=== PATIENT | male | born 1975 | race Caucasian/White ===

== ENCOUNTER 2017-03-04 18:17 | Emergency (ER) | payer BC ==
[2017-03-04 18:26] VITALS: BP 149/106
[2017-03-04] MEDS ORDERED: Lidocaine/Epineph/Tetraca SOL* (LET solution) 4 ML BTL TOPICAL ONE (18:34)
--- NOTE | 2017-03-04 18:39 | UC ---
Laceration HPI - HPI Summary HPI Summary: 41 y/o male presents to the ER c/o head laceration on top of his head with a roll bar of a dozer around 30 min ago. Pt reports he had a Tetanus Vaccine 2 year ago. Pt states pain is 7/10 bleeding stopped with compression. Pt denies pain, ARMANDO, N/V/D, dizziness, SOB, chest pain. - History Of Current Complaint Chief Complaint: UCLaceration Stated Complaint: HEAD LACERATION Time Seen by Provider: 03/04/17 18:31 Hx Obtained From: Patient Laceration Location: Head - top of scalp Mechanism Of Injury: Sharp Trauma Onset/Duration: Sudden Onset, Lasting Minutes, Still Present Severity: Moderate Pain Intensity: 7 Pain Scale Used: 0-10 Numeric Aggravating Factors: Other: - touch - Allergies/Home Medications Allergies/Adverse Reactions: Allergies Allergy/AdvReac Type Severity Reaction Status Date / Time No Known Allergies Allergy Verified 03/04/17 18:26 PMH/Surg Hx/FS Hx/Imm Hx Previously Healthy: Yes Other History Of: Negative For: HIV, Hepatitis B, Hepatitis C, Anticoagulant Therapy - Surgical History Surgical History: Yes Surgery Procedure, Year, and Place: appy - Family History Known Family History: Positive: Hypertension - Social History Occupation: Employed Full-time Lives: With Family Alcohol Use: Occasionally Alcohol Amount: once a week Substance Use Type: None Smoking Status (MU): Heavy Every Day Tobacco Smoker Type: Cigarettes Amount Used/How Often: 1/2 ppd Length of Time of Smoking/Using Tobacco: 25 yrs Have You Smoked in the Last Year: Yes Household Exposure Type: Cigarettes - Immunization History Most Recent Influenza Vaccination: none Review of Systems Constitutional: Negative Skin: Other - Laceration on top of scalp s/p injury Eyes: Negative ENT: Negative Respiratory: Negative Cardiovascular: Negative Gastrointestinal: Negative Genitourinary: Negative Motor: Negative Neurovascular: Negative Musculoskeletal: Negative Neurological: Negative Psychological: Negative All Other Systems Reviewed And Are Negative: Yes Physical Exam Triage Information Reviewed: Yes Appearance: Well-Appearing, No Pain Distress, Well-Nourished Vital Signs: Initial Vital Signs Temp 97.6 F 03/04/17 18:23 Pulse 84 03/04/17 18:23 Resp 16 03/04/17 18:23 BP 149/106 03/04/17 18:23 Vital Signs Reviewed: Yes Eye Exam: Normal Eyes: Positive: Conjunctiva Clear - PERRLA, EOMI, fundi grossy normal ENT Exam: Normal ENT: Positive: Normal ENT inspection, Hearing grossly normal, Pharynx normal, TMs normal Dental Exam: Normal Neck exam: Normal Neck: Positive: Supple, Nontender, No Lymphadenopathy Respiratory Exam: Normal Respiratory: Positive: Chest non-tender, Lungs clear, Normal breath sounds Cardiovascular Exam: Normal Cardiovascular: Positive: RRR, No Murmur, Pulses Normal Abdominal Exam: Normal Abdomen Description: Positive: Nontender, No Organomegaly, Soft. Negative: CVA Tenderness (R), CVA Tenderness (L) Bowel Sounds: Positive: Present Musculoskeletal Exam: Normal Musculoskeletal: Positive: Strength Intact, ROM Intact, No Edema Neurological Exam: Normal Psychological Exam: Normal Skin: Positive: significant lesion(s) - top scalp linear superficial laceration about 5cm in size. mild tender to palaption, bleeding stopped. no foreign body observed, no erythema or swelling observed. Laceration Repair - Laceration Repair 1 Description: Linear Laceration Size After Repair: Length (cm) - 5cm Modified For Repair: No Type Injection: Local - LET applied 8ml Cleansing Completed Via Routine Prep: Yes Irrigation With Pressure Irrigation Device: Yes Closure Material: Brinson - 10 dena Closure Method: Single Layer Suture Of: Skin Suture Type: Other - dena Laceration Course/Dx - Course/Dx Course Of Treatment: 41 y/o male presents to the ER c/o head laceration on top of his head with a roll bar of a dozer around 30 min ago. Pt reports he had a Tetanus Vaccine 2 year ago. Pt denies pain, ARMANDO, N/V/D, dizziness, SOB, chest pain. HX obtained. PE bnormal findings: Skin: Positive: significant lesion(s) - top scalp linear superficial laceration about 5cm in size. mild tender to palaption, bleeding stopped. no foreign body observed, no erythema or swelling observed. LACERATION PROCEDURE NOTE: Copious irrigation was done with saline by the nurse. Bleeding stopped, wound explored. There was no FB or deep structure injury noted. Time out performed and all involved parties agreed to the PT, procedure and laterality. The patient was prepped and draped in usual sterile fashion. Local anesthesia was obtained with 8ml of LET with good anesthesia. There were 10 dena placed. The length of the wound after closure was 5cm. No debridement done. Wound was covered with sterile nonadherent dressing by the Nurse. The Pt tolerated the procedure well without adverse effects. Pt gienc Ibuprofen 800mg PO for pain and RX Ibuprofe PO. Pt advised if fever, redness develops around wound to returnt to the urgent care or f/u with PCP. Advised to f/u staple removal in 7-14 days. Pt's BP is elevated today, advised to decrease salt in his diet, monitor BP at home and if it continues to be elevated to f/u with PCP for further management. Pt uderstood and agreed and left the clinic ambulating, A&OX3. - Differential Dx - Laceration/Wound Differental Diagnoses: Abrasion, Foreign Body, Laceration, Puncture Wound, Tendon Laceration Provider Diagnoses: 1- Scalp Laceration. 2- Elevated Blood pressure w/o HX of HTN. Discharge - Discharge Plan Condition: Stable Disposition: HOME Prescriptions: Ibuprofen TAB* [Motrin TAB* 800 MG] 800 mg PO Q6H #20 tab Patient Education Materials: Laceration (ED), Staple Care (ED), Low Sodium Diet (ED) Referrals: SHARON DuranGraciela [Primary Care Provider] - If Needed Additional Instructions: 1-Please take ibuprofen PO q6-8hrs prn for pain ans swelling. 2- After 24 to 48 hours, wounds closed with dena if your develop fever, redness around wound please return to the urgent care or your PCP for further evaluation and treatment. 3- Please f/u staple removal in 7 to 14 4-Your BP today is elevated, please decrease salt in your diet, monitor your BP , if it continues to be elevated please f/y with your PCP for further management.
[2017-03-04] MEDS ORDERED: Ibuprofen TAB* 400 MG PO ONE (19:13)
== END 2017-03-04 19:26 | disposition home or self-care (01) ==
LOC: UCCORT 18:17
DX: S01.01XA Laceration without foreign body of scalp, initial encounter (principal); W22.8XXA Striking against or struck by other objects, initial encounter; R03.0 Elevated blood-pressure reading, without diagnosis of hypertension; F17.210 Nicotine dependence, cigarettes, uncomplicated
CPT/HCPCS: 12002; 99212; A9270-GY; G0463

== ENCOUNTER 2017-03-15 09:40 | Emergency (ER) | payer BC ==
[2017-03-15 10:04] VITALS: BP 128/88
--- NOTE | 2017-03-15 10:39 | ED ---
Skin Complaint - HPI Summary HPI Summary: 41 yr old male with scalp laceration on 03 of march, and had dena put in ; he presents here for removal of the dena. He feels fine and no other complains. - History of Current Complaint Chief Complaint: UCSkin Time Seen by Provider: 03/15/17 10:05 Stated Complaint: STAPLE REMOVAL - Allergy/Home Medications Allergies/Adverse Reactions: Allergies Allergy/AdvReac Type Severity Reaction Status Date / Time No Known Allergies Allergy Verified 03/15/17 10:04 PMH/Surg Hx/FS Hx/Imm Hx Endocrine/Hematology History: Denies: Hx Anticoagulant Therapy, Hx Diabetes, Hx Thyroid Disease Cardiovascular History: Denies: Hx Congestive Heart Failure, Hx Deep Vein Thrombosis, Hx Hypertension , Hx Myocardial Infarction, Hx Pacemaker/ICD Respiratory History: Denies: Hx Asthma, Hx Chronic Obstructive Pulmonary Disease (COPD), Hx Lung Cancer, Hx Pneumonia, Hx Pulmonary Embolism GI History: Denies: Hx Gall Bladder Disease, Hx Gastrointestinal Bleed, Hx Ulcer, Hx Urosepsis History: Denies: Hx Kidney Stones, Hx Renal Disease Neurological History: Denies: Hx Dementia, Hx Migraine, Hx Seizures, Hx Transient Ischemic Attacks (TIA) Psychiatric History: Denies: Hx Anxiety, Hx Depression, Hx Schizophrenia, Hx Bipolar Disorder - Surgical History Surgery Procedure, Year, and Place: appy - Immunization History Immunizations Up to Date: Yes Infectious Disease History: No Infectious Disease History: Denies: Traveled Outside the [place] in Last 30 Days - Family History Known Family History: Positive: Hypertension - Social History Alcohol Use: Occasionally Alcohol Amount: once a week Substance Use Type: Reports: None Smoking Status (MU): Heavy Every Day Tobacco Smoker Type: Cigarettes Amount Used/How Often: 1/2 ppd Length of Time of Smoking/Using Tobacco: 25 yrs Have You Smoked in the Last Year: Yes Review of Systems Positive: Other - staple removal from scalp All Other Systems Reviewed And Are Negative: Yes Physical Exam Triage Information Reviewed: Yes Vital Signs On Initial Exam: Initial Vitals Temp Pulse Resp BP Pulse Ox 98.2 F 84 14 128/88 98 03/15/17 10:00 03/15/17 10:00 03/15/17 10:00 03/15/17 10:00 03/15/17 10:00 Vital Signs Reviewed: Yes Appearance: Positive: Well-Appearing Skin: Positive: Other - scalp laceration healed well, and dena are present Eyes: Positive: EOMI Respiratory/Lung Sounds: Positive: Other - normal effort Musculoskeletal: Positive: Normal, Strength/ROM Intact Neurological: Positive: Sensory/Motor Intact, Alert, Oriented to Person Place, Time, CN Intact II-III Psychiatric: Positive: Normal - Perla Coma Scale Best Eye Response: 4 - Spontaneous Best Motor Response: 6 - Obeys Commands Best Verbal Response: 5 - Oriented Diagnostics - Vital Signs Vital Signs Temp Pulse Resp BP Pulse Ox 03/15/17 10:00 98.2 F 84 14 128/88 98 - Laboratory Lab Statement: Any lab studies that have been ordered have been reviewed, and results considered in the medical decision making process. Course/Dx - Course Course Of Treatment: dena removed, and dc to home - Diagnoses Provider Diagnoses: Encounter for removal of dena Discharge - Discharge Plan Condition: Good Disposition: HOME Patient Education Materials: Staple Care (ED) Referrals: SHARON Tse [Medical Doctor] -
== END 2017-03-15 10:39 | disposition home or self-care (01) ==
LOC: UCCORT 09:40
DX: Z48.02 Encounter for removal of sutures (principal); Z48.817 Encounter for surgical aftercare following surgery on the skin and subcutaneous tissue
CPT/HCPCS: 99211; G0463

== ENCOUNTER 2018-02-26 18:18 | Emergency (ER) | payer BC, OTHER ==
--- NOTE | 2018-02-27 17:12 | UC ---
Discharge - Sign-Out/Discharge Documenting (check all that apply): Post-Discharge Follow Up All imaging exams completed and their final reports reviewed: No Studies - Discharge Plan Condition: Stable Disposition: LEFT WITHOUT BEING SEEN Referrals: No Primary Care Phys,NOPCP [Primary Care Provider] - - Billing Disposition and Condition Condition: STABLE Disposition: Left Without Being Seen
== END 2018-02-26 18:43 | disposition left against medical advice (07) ==
LOC: UCCORT 18:18
DX: R10.9 Unspecified abdominal pain (principal); Z53.21 Procedure and treatment not carried out due to patient leaving prior to being seen by health care provider

== ENCOUNTER 2018-02-26 19:15 | Emergency (ER) | payer SELFPAY ==
[2018-02-26] MEDS ORDERED: NS 0.9% 1000 ML* 1,000 ML IV ONE (19:56)
[2018-02-26] MEDS ORDERED: Ketorolac INJ* 30 MG/ML 1 ML VIAL IV PUSH ONE (19:56)
--- NOTE | 2018-02-26 20:03 | ED ---
Abdominal Pain/Male - HPI Summary HPI Summary: A 42 y/o male presents to the ED c/o abdominal and ankle pain (on side) s/p fall reaching 9/10 in severity. In the ED room, the patient has a pulse of 83 BPM and O2 saturation of 96%. As per triage, "Pt c/o right ankle and abdominal pain. States he was at work walking on a pipe when he slipped and rolled his ankle and landed on his abdomen". According to the patient, he has been experiencing right ankle pain and diffuse abdominal pain since falling off a convert water pipe (pipe for water drainage) about approximately 36 inches high. He noted that he was walking on top of the pipe as he was at work and accidentally slipped and fell off the pipe around 1330 - 1400. He ended up rolling his ankle and landing on his abdomen. He didn't come into the hospital till later this evening as he wanted to complete his work shift. - History of Current Complaint Chief Complaint: EDAbdPain Stated Complaint: ABD PAIN/ANKLE PAIN Time Seen by Provider: 02/26/18 19:48 Hx Obtained From: Patient Onset/Duration: Sudden Onset, Lasting Hours, Still Present Timing: Constant Severity Initially: Severe Severity Currently: Severe Pain Intensity: 9 Pain Scale Used: 0-10 Numeric Location: Diffuse Radiates: No Aggravating Factor(s): Nothing Alleviating Factor(s): Nothing Associated Signs And Symptoms: Positive: Other - POSITIVE: Right ankle pain - Allergies/Home Medications Allergies/Adverse Reactions: Allergies Allergy/AdvReac Type Severity Reaction Status Date / Time No Known Allergies Allergy Verified 02/26/18 19:28 Home Medications: Home Medications Ibuprofen TAB* [Motrin TAB* 800 MG] 800 mg PO Q6H PRN 02/26/18 [History Confirmed 02/26/18] PMH/Surg Hx/FS Hx/Imm Hx Endocrine/Hematology History: Denies: Hx Anticoagulant Therapy, Hx Diabetes, Hx Thyroid Disease Cardiovascular History: Denies: Hx Congestive Heart Failure, Hx Deep Vein Thrombosis, Hx Hypertension , Hx Myocardial Infarction, Hx Pacemaker/ICD Respiratory History: Denies: Hx Asthma, Hx Chronic Obstructive Pulmonary Disease (COPD), Hx Lung Cancer, Hx Pneumonia, Hx Pulmonary Embolism GI History: Denies: Hx Gall Bladder Disease, Hx Gastrointestinal Bleed, Hx Ulcer, Hx Urosepsis History: Denies: Hx Kidney Stones, Hx Renal Disease Neurological History: Denies: Hx Dementia, Hx Migraine, Hx Seizures, Hx Transient Ischemic Attacks (TIA) Psychiatric History: Denies: Hx Anxiety, Hx Depression, Hx Schizophrenia, Hx Bipolar Disorder - Surgical History Surgery Procedure, Year, and Place: Appendectomy. Infectious Disease History: No Infectious Disease History: Denies: Traveled Outside the [place] in Last 30 Days - Family History Known Family History: Positive: Hypertension - Social History Alcohol Use: Occasionally Alcohol Amount: once a week Substance Use Type: Reports: None Smoking Status (MU): Heavy Every Day Tobacco Smoker Type: Cigarettes Amount Used/How Often: 1/2 ppd Length of Time of Smoking/Using Tobacco: 25 yrs Have You Smoked in the Last Year: Yes Review of Systems Negative: Fever Positive: Abdominal Pain Positive: Other - POSITIVE: Ankle pain All Other Systems Reviewed And Are Negative: Yes Physical Exam - Summary Physical Exam Summary: VITAL SIGNS: Reviewed. GENERAL: Patient is a well-developed and nourished male who is lying comfortable in the stretcher. Patient is not in any acute respiratory distress. HEAD AND FACE: No signs of trauma. No ecchymosis, hematomas or skull depressions. No sinus tenderness. EYES: PERRLA, EOMI x 2, No injected conjunctiva, no nystagmus. EARS: Hearing grossly intact. Ear canals and tympanic membranes are within normal limits. MOUTH: Oropharynx within normal limits. NECK: Supple, trachea is midline, no adenopathy, no JVD, no carotid bruit, no c- spine tenderness, neck with full ROM. CHEST: Symmetric, no tenderness at palpation LUNGS: Clear to auscultation bilaterally. No wheezing or crackles. CVS: Regular rate and rhythm, S1 and S2 present, no murmurs or gallops appreciated. ABDOMEN: Soft, non-tender. No signs of distention. No rebound no guarding. Bowel sounds are normal. Small umbilical hernia. EXTREMITIES: FROM in all major joints, no cyanosis or clubbing. Mild swelling of the right lateral malleolus ankle NEURO: Alert and oriented x 3. No acute neurological deficits. Speech is normal and follows commands. SKIN: Dry and warm Triage Information Reviewed: Yes Vital Signs On Initial Exam: Initial Vitals Temp Pulse Resp BP Pulse Ox 97.5 F 81 16 138/99 97 02/26/18 19:25 02/26/18 19:25 02/26/18 19:25 02/26/18 19:25 02/26/18 19:25 Vital Signs Reviewed: Yes Diagnostics - Vital Signs Vital Signs Temp Pulse Resp BP Pulse Ox 02/26/18 19:25 97.5 F 81 16 138/99 97 - Laboratory Result Diagrams: 02/26/18 20:06 02/26/18 20:06 Lab Statement: Any lab studies that have been ordered have been reviewed, and results considered in the medical decision making process. - Radiology ANKLE XR Radiology Interpretation Completed By: ED Physician - No fracture. Pending official report. - CT CT A/P CT Interpretation Completed By: Radiologist - 1. No acute intra-abdominal findings. ED physician reviewed this radiology report. Re-Evaluation - Re-Evaluation First Eval Re-Evaluation Time: 22:55 Change: Improved Comment: Patient is feeling much better. Abdominal Pain Fem Course/Dx - Course Course Of Treatment: A 42 y/o male presents to the ED c/o abdominal and ankle pain (on side) s/p fall reaching 9/10 in severity. In the ED room, the patient has a pulse of 83 BPM and O2 saturation of 96%. A CT A/P revealed 1. No acute intra-abdominal findings. A Ankle XR revealed no fracture. Urine and blood work were also done. In the ED course, the patient recieved Omnipaque, Toradol and IV fluids. During reevaluation, the patient was feling much better. Patient will be discharged with a diagnosis of ankle strain. Patient will be sent home with Ibuprofen. Patient is to follow up with PCP in 1-2 days. Patient is agreeable with this plan. - Diagnoses Provider Diagnoses: Ankle strain Discharge - Sign-Out/Discharge Documenting (check all that apply): Patient Departure - DISCHARGE - Discharge Plan Condition: Stable Disposition: HOME Prescriptions: Ibuprofen TAB* [Motrin TAB* 800 MG] 800 mg PO Q6H PRN #30 tab PRN Reason: Pain Patient Education Materials: Ankle Strain (ED) Referrals: [facility] [Outside] - 2 Days Additional Instructions: FOLLOW UP WITH PRIMARY CARE PHYSICIAN OR [facility] IN 1-2 DAYS. TAKE MEDICATION PRESCRIBED. RETURN TO ED FOR ANY NEW OR WORSENING SYMPTOMS. - Attestation Statements Document Initiated by Scribe: Yes Documenting Scribe: Ashu Gilbert Provider For Whom Scribe is Documenting (Include Credential): Naa Urena Scriblj Attestation: IAshu, scribed for Naa Urena on 02/26/18 at 2257.
[2018-02-26 20:27] LABS: ABS Basophils 0 10^3/ul (0-0.2); ABS Eosinophils 0.3 10^3/ul (0-0.6); ABS Lymphocytes 3.2 10^3/ul (1.0-4.8); ABS Monocytes 0.6 10^3/ul (0-0.8); ABS Neutrophils 3.8 10^3/ul (1.5-7.7); ABS Nucleated RBC 0 10^3/ul; Eosinophil % 4.4 % (0-6); Hematocrit 43 % (42-52); Hemoglobin 14.8 g/dl (14.0-18.0); Lymphocyte % 39.6 % (25-47); Mean Corpuscular HGB Conc 34 g/dl (31-36); Mean Corpuscular Hemoglobin 30 pg (27-31); Mean Corpuscular Volume 88 fL (80-94); Mean Platelet Volume 8.1 um3 (7.4-10.4); Nucleated Red Blood Cells % 0.2; Platelet Count 225 10^3/ul (150-450); Red Blood Count 4.94 10^6/ul (4.00-5.40); Red Cell Distribution Width 14 % (10.5-15)
[2018-02-26 20:35] LABS: INR 0.89 (0.77-1.02)
[2018-02-26 20:41] LABS: EGFR Non-African American 99.3 (>60)
[2018-02-26] MEDS ORDERED: Iohexol 300* (CONTRAST) 10 ML SDV IV ONE ×2 (21:14→21:30)
--- NOTE | 2018-02-26 22:30 | RAD ---
EXAM: CT Abdomen and Pelvis With Intravenous Contrast CLINICAL HISTORY: 42 years old, male; Pain and injury or trauma; Fall; Work related; Initial encounter; Blunt; Epigastric; Abdominal pain; Injury details: Pt was at work and slipped and fell on a pipe; Additional info: Abd pain/trauma TECHNIQUE: Axial computed tomography images of the abdomen and pelvis with intravenous contrast. All CT scans at this facility use at least one of these dose optimization techniques: automated exposure control; mA and/or kV adjustment per patient size (includes targeted exams where dose is matched to clinical indication); or iterative reconstruction. Coronal and sagittal reformatted images were created and reviewed. CONTRAST: 98 mL of OMNIPAQUE 300 administered intravenously. COMPARISON: No relevant prior studies available. FINDINGS: Lung bases: Unremarkable. No mass. No consolidation. ABDOMEN: Liver: Unremarkable. No mass. Gallbladder and bile ducts: Unremarkable. No calcified stones. No ductal dilation. Pancreas: Unremarkable. No mass. No ductal dilation. Spleen: Unremarkable. No splenomegaly. Adrenals: Unremarkable. No mass. Kidneys and ureters: Unremarkable. No solid mass. No hydronephrosis. Stomach and bowel: Colonic diverticula without CT findings of diverticulitis. No obstruction. PELVIS: Appendix: Surgical absence of the appendix. Bladder: Unremarkable. No mass. Reproductive: Unremarkable as visualized. ABDOMEN and PELVIS: Intraperitoneal space: Surgical clips in the right lower quadrant of the abdomen. No free air. No significant fluid collection. Bones/joints: Moderate disc space narrowing at the L5-S1 level. No acute fracture. No dislocation. Soft tissues: Small fat-containing umbilical hernia. Vasculature: Unremarkable. No abdominal aortic aneurysm. Lymph nodes: Unremarkable. No enlarged lymph nodes. IMPRESSION: 1. No acute intra-abdominal findings.
[2018-02-26 22:50] LABS: Urine Appearance Clear; Urine Blood 2+ (Negative); Urine Color Yellow; Urine Ketones Negative (Negative); Urine Protein Negative (Negative); Urine Red Blood Cell Absent (Absent); Urine Specific Gravity > 1.060 (1.010-1.030); Urine Urobilinogen Negative (Negative); Urine White Blood Cell Absent (Absent)
[2018-02-26 23:07] VITALS: BP 145/98
--- NOTE | 2018-02-27 08:11 | RAD ---
INDICATION: Right ankle pain COMPARISON: None TECHNIQUE: AP, lateral, and oblique views were obtained. FINDINGS: The bony structures, joint spaces, and soft tissues are normal for age. IMPRESSION: NEGATIVE EXAMINATION. R0
== END 2018-02-26 23:07 | disposition home or self-care (01) ==
LOC: ED 19:15
DX: S96.911A Strain of unspecified muscle and tendon at ankle and foot level, right foot, initial encounter (principal); R10.9 Unspecified abdominal pain; W19.XXXA Unspecified fall, initial encounter; Y92.9 Unspecified place or not applicable; F17.210 Nicotine dependence, cigarettes, uncomplicated
CPT/HCPCS: 36415; 74177; 80053; 81003; 81015; 82150; 83605; 83690; 83735; 85025; 85610; 85730; 96361; 96374; 99283; J1885; Q9967

== ENCOUNTER 2018-03-01 14:57 | Emergency (ER) | payer SELFPAY ==
[2018-03-01 15:10] VITALS: BP 147/100
--- NOTE | 2018-03-01 15:28 | UC ---
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 - History of Current Complaint Chief Complaint: UCAbdominalPain Stated Complaint: ABDOMINAL PAIN Time Seen by Provider: 03/01/18 15:14 Hx Obtained From: Patient Onset/Duration: Sudden Onset, Lasting Days - 3, Still Present Timing: Constant Pain Intensity: 6 Pain Scale Used: 0-10 Numeric Location: Other - umbillical Radiates: No Character: Aching Aggravating Factor(s): Movement - lifting Alleviating Factor(s): Nothing Associated Signs And Symptoms: Positive: Negative - Allergies/Home Medications Allergies/Adverse Reactions: Allergies Allergy/AdvReac Type Severity Reaction Status Date / Time No Known Allergies Allergy Verified 03/01/18 15:10 PMH/Surg Hx/FS Hx/Imm Hx Previously Healthy: Yes Other History Of: Negative For: HIV, Hepatitis B, Hepatitis C, Anticoagulant Therapy - Surgical History Surgical History: Yes Surgery Procedure, Year, and Place: Appendectomy. - Family History Known Family History: Positive: Hypertension - Social History Occupation: Employed Full-time Lives: With Family Alcohol Use: Occasionally Alcohol Amount: once a week Substance Use Type: None Smoking Status (MU): Current Some Day Smoker Type: Cigarettes Amount Used/How Often: 1/2 ppd Length of Time of Smoking/Using Tobacco: 25 yrs Have You Smoked in the Last Year: Yes Household Exposure Type: Cigarettes - Immunization History Most Recent Influenza Vaccination: none Review of Systems Constitutional: Negative Skin: Negative Eyes: Negative ENT: Negative Respiratory: Negative Cardiovascular: Negative Gastrointestinal: Abdominal Pain - bulding in "belly button" Genitourinary: Negative Motor: Negative Neurovascular: Negative Musculoskeletal: Negative Neurological: Negative Psychological: Negative Is Patient Immunocompromised?: No All Other Systems Reviewed And Are Negative: Yes Physical Exam Triage Information Reviewed: Yes Appearance: Well-Appearing, No Pain Distress, Well-Nourished Vital Signs: Initial Vital Signs Temp 98.6 F 03/01/18 15:05 Pulse 89 03/01/18 15:05 Resp 16 03/01/18 15:05 BP 147/100 03/01/18 15:05 Pulse Ox 100 03/01/18 15:05 Vital Signs Reviewed: Yes Eye Exam: Normal Eyes: Positive: Conjunctiva Clear ENT Exam: Normal ENT: Positive: Normal ENT inspection, Hearing grossly normal. Negative: Nasal congestion, Trismus, Muffled voice, Hoarse voice Dental Exam: Normal Neck exam: Normal Neck: Positive: Supple, Nontender, No Lymphadenopathy Respiratory Exam: Normal Respiratory: Positive: Chest non-tender, No respiratory distress, No accessory muscle use Cardiovascular Exam: Normal Cardiovascular: Positive: RRR, Pulses Normal, Brisk Capillary Refill Abdominal Exam: Other Abdomen Description: Positive: No Organomegaly, Soft, Hernia @ - unbilical. Negative: CVA Tenderness (R), CVA Tenderness (L), Distended, McBurney's Point Tenderness Bowel Sounds: Positive: Present Musculoskeletal Exam: Normal Musculoskeletal: Positive: Strength Intact, ROM Intact, No Edema Neurological Exam: Normal Neurological: Positive: Alert, Muscle Tone Normal Psychological Exam: Normal Skin Exam: Normal Diagnostics - Laboratory Diagnostic Studies Completed/Ordered: CT scan at ED visit did indicate an umbillical hernia-- Abd Pain Male Course/Dx - Course Course Of Treatment: limit lifting and strenous activites allow for rest if pain continues or worsens follow with surgeon---bp is elevated referral made for primary care doctor - Differential Dx/Clinical Impression Provider Diagnoses: umbilical hernia, elvevated blood pressure without diagnosis of hypertension, nicotine dependant Discharge - Sign-Out/Discharge Documenting (check all that apply): Patient Departure All imaging exams completed and their final reports reviewed: No Studies - Discharge Plan Condition: Stable Disposition: HOME Patient Education Materials: Umbilical Hernia (ED), Hypertension (ED) Forms: *Work Release Referrals: SHARON Tse [Medical Doctor] - 1 Week Mahendra Andrade MD [Medical Doctor] - 4 Days (you may ask for an appointment in the [facility]) - Billing Disposition and Condition Condition: STABLE Disposition: Home
== END 2018-03-01 15:42 | disposition home or self-care (01) ==
LOC: UCEAST 14:57
DX: K42.9 Umbilical hernia without obstruction or gangrene (principal); F17.210 Nicotine dependence, cigarettes, uncomplicated; R03.0 Elevated blood-pressure reading, without diagnosis of hypertension
CPT/HCPCS: 99211; G0463

== ENCOUNTER → 2018-03-27 07:33 | Day surgery (SDC) | payer OTHER ==
--- NOTE | 2018-03-23 06:27 | HP ---
CONTINUATION ADDENDUM NOW INCLUDED ON THIS REPORT CC: Worker's Compensation... ADMISSION HISTORY AND PHYSICAL: DATE OF ADMISSION: 03/27/18 ATTENDING SURGEON: Dr. Mahendra Andrade.* (DICTATED BY TUAN STALLWORTH) CHIEF COMPLAINT: Umbilical hernia. HISTORY OF PRESENT ILLNESS: This is a 42-year-old generally healthy patient, who while at work fell on a pipe with resultant abdominal pain. He presented to the ED on that same date and CT scan of the abdomen and pelvis apparently showed a fat- containing umbilical hernia. The patient states that the abdominal pain has subsided, though does recur in relation to physical activity. He has therefore been unable to work. He was seen in the office by Dr. Andrade on 03/08/18, at which time his CT scan was reviewed and he was examined. Examination revealed a mildly tender umbilical hernia. Dr. Andrade has discussed with him the indications for surgery, the risks, benefits, and alternatives including the use of mesh. The patient is agreeable to proceed as scheduled with open repair of umbilical hernia with mesh. PAST MEDICAL HISTORY: Obesity. Active smoker. The patient has no other chronic or active medical problems including hypertension, cardiovascular disease, diabetes, personal history of cancer, breathing disorders, bleeding or blood clot disorders. PAST SURGICAL HISTORY: Appendectomy, uncomplicated. CURRENT MEDICATIONS: None. DRUG ALLERGIES: None. FAMILY HISTORY: Negative for anesthesia problems, bleeding or clotting disorders. SOCIAL HISTORY: The patient is . He works doing construction work. He is a one-half pack per day smoker, who was encouraged to quit for the long run and specifically to not smoke on the morning of surgery. He drinks on average 3 beers per week. He denies other recreational drug use. REVIEW OF SYSTEMS: General: No recent acute illnesses or constitutional symptoms other than as noted in the HPI. HEENT: No problems reported. Cardiovascular: No chest pain, palpitations, history of hypertension, or heart murmur. Respiratory: No history of asthma, chronic cough, or shortness of breath. He is an active smoker. GI: No nausea, vomiting, diarrhea, or constipation. : No problems reported. Endocrine: No diabetes or thyroid dysfunction. Musculoskeletal: He apparently had an ankle injury as part of the same event, though I did not question him about that today. PHYSICAL EXAMINATION GENERAL: Well-nourished, obese male, in no acute distress. VITAL SIGNS: Height 5 feet 7 inches, weight 195 pounds. Blood pressure 138/90 , pulse 80, respirations 16. HEENT: Pupils are equal, round, and reactive. EOMs intact. No conjunctival pallor. Oropharynx: Teeth in good repair. No intraoral lesions. NECK: No lymphadenopathy, thyromegaly, or masses. LUNGS: Clear to auscultation. No rales or wheezes. HEART: Regular rate and rhythm. No murmur noted. ABDOMEN: Right lower quadrant surgical scar. Visible and palpable umbilical bulge, which is mildly tender to palpation. There is a question in terms of complete reducibility. No other palpable abdominal wall masses or organomegaly. No palpable inguinal hernias. GENITALIA: Otherwise normal. RECTAL: Not done. BACK: No spinous process or CVA tenderness. EXTREMITIES: No edema. NEUROLOGICAL: Grossly intact. SKIN: Warm and dry. No suspicious rashes or lesions noted. IMPRESSION: Umbilical hernia (work-related). PLAN: Open repair of umbilical hernia with mesh. TUAN STALLWORTH [id number]/[employer] #: [id number]/[employer] #: [id number] ROJAS
--- NOTE | 2018-03-23 06:27 | HP ---
CC: Worker's Compensation HISTORY AND PHYSICAL: ADDENDUM: SOCIAL HISTORY: The patient is . He works doing construction work. He is a one-half pack per day smoker, who was encouraged to quit for the long run and specifically to not smoke on the morning of surgery. He drinks on average 3 beers per week. He denies other recreational drug use. REVIEW OF SYSTEMS: General: No recent acute illnesses or constitutional symptoms other than as noted in the HPI. HEENT: No problems reported. Cardiovascular: No chest pain, palpitations, history of hypertension, or heart murmur. Respiratory: No history of asthma, chronic cough, or shortness of breath. He is an active smoker. GI: No nausea, vomiting, diarrhea, or constipation. : No problems reported. Endocrine: No diabetes or thyroid dysfunction. Musculoskeletal: He apparently had an ankle injury as part of the same event, though I did not question him about that today. PHYSICAL EXAMINATION GENERAL: Well-nourished, obese male, in no acute distress. VITAL SIGNS: Height 5 feet 7 inches, weight 195 pounds. Blood pressure 138/90 , pulse 80, respirations 16. HEENT: Pupils are equal, round, and reactive. EOMs intact. No conjunctival pallor. Oropharynx: Teeth in good repair. No intraoral lesions. NECK: No lymphadenopathy, thyromegaly, or masses. LUNGS: Clear to auscultation. No rales or wheezes. HEART: Regular rate and rhythm. No murmur noted. ABDOMEN: Right lower quadrant surgical scar. Visible and palpable umbilical bulge, which is mildly tender to palpation. There is a question in terms of reducibility. No other palpable abdominal wall masses or organomegaly. No palpable inguinal hernias. GENITALIA: Otherwise normal. RECTAL: Not done. BACK: No spinous process or CVA tenderness. EXTREMITIES: No edema. NEUROLOGICAL: Grossly intact. SKIN: Warm and dry. No suspicious rashes or lesions noted. IMPRESSION: Umbilical hernia (work-related). PLAN: Open repair of umbilical hernia with mesh. TUAN STALLWORTH [id number]/[facility] #: [id number] ROJAS
[~2018-03-27 07:33] MED LIST: Acetaminophen TAB* 325 MG PO PRN; Buffered Lidocaine 0.9% SYRIN* 5 ML/SYR SYRINGE INTRADERM ONE; Bupivacaine 0.25% SDV PF* 10 ML VIAL INJ ONE; Bupivacaine 0.5% SDV PF* 30ML VIAL ONE; Dexamethasone TAB* 4 MG ONE; Dexamethasone TAB* 4 MG PO ONE; DiMENhydriNATE IV* 50 MG/ML VIAL IV PUSH PRN; Famotidine IV* 10 MG/ML 2 ML (20 mg) IV ONE; Famotidine IV* 10 MG/ML 2 ML (20 mg) ONE; KETAMINE HCL* 50 MG/ML 10 ML VIAL ONE; Ketorolac INJ* 30 MG/ML 1 ML VIAL IV PRN; Labetalol IV* 5 MG/ML 20 ML VIAL ONE; Lidocain 1% EPI 1:100,000 * 30 ML MDV ONE; Lidocaine 1% MPF wEPI 200,000* 30 ML SDV ONE; Lidocaine 2% PF * 5 ML VIAL ONE; Midazolam* 1 MG/ML 5 ML VIAL (5 MG) ONE; Naloxone* 0.4 MG/ML 1 ML VIAL IV PRN; Ondansetron ODT TAB* 4 MG ONE; Ondansetron TAB* 4 MG PO ONE; PROCHLORPERAZINE INJ 5 MG/ML 2 ML VIAL IV PRN; Propofol* 500 MG/50 ML BTL ONE; ceFAZolin 2 GM in NS PREMIX(*) 2 GM/100 ML BAG IVPB ONE; fentaNYL* 50 MCG/ML 2 ML VIAL (100 MCG VIAL) IV PRN; fentaNYL* 50 MCG/ML 2 ML VIAL (100 MCG VIAL) ONE; oxyCODONE/Acetamin 5/325 MG* TAB ONE; oxyCODONE/Acetamin 5/325 MG* TAB PO PRN
--- NOTE | 2018-03-27 10:21 | OP ---
Operative Report - Blank - Operative Report Date of Operation: 03/27/18 Note: Brief Operative Note Preop Dx: umbilical hernia Postop Dx: same Procedure: open repair umbilical hernia w/ mesh Anesthesia: local/MAC Surgeon: Lupe [employer] Specialist: TUAN Koch Fluids: 750 ml RL EBL: none Specimen: none Drains: none Findings: dictated
[2018-03-27 10:48] VITALS: BP 128/84
--- NOTE | 2018-03-29 19:25 | OP ---
DATE OF OPERATION: 03/27/18 - [facility] DATE OF : 71 SURGEON: Mahendra Andrade MD REFINERY TECHNICIAN: TUAN Cunningham ANESTHESIOLOGIST: Darshan Patel MD ANESTHESIA: Local MAC. PRE-OP DIAGNOSIS: Umbilical hernia. POST-OP DIAGNOSIS: Umbilical hernia. OPERATIVE PROCEDURE: Open repair of umbilical hernia with mesh. ESTIMATED BLOOD LOSS: Minimal. IV FLUIDS: 750 mL crystalloids. SPECIMENS: None. DRAINS: None. COMPLICATIONS: None. COUNTS: The instrument, needle, and sponge counts correct. DESCRIPTION OF PROCEDURE: The patient was brought to the operating room and placed on the table supine. Sequential compression devices were placed on both lower extremities. Intravenous sedation was administered. His abdomen was prepped and draped in the usual sterile fashion and a time-out was performed. The umbilical hernia was reduced. Local anesthetic was infiltrated as a field block in the periumbilical soft tissue. A curvilinear infraumbilical incision was created and the subcutaneous tissues were divided using a combination of blunt dissection and cautery. The umbilical stalk was dissected free from the anterior abdominal wall. The preperitoneal plane was bluntly dissected and then a Ventralex ST circular mesh patch with straps was used for the repair. The small sized patch was used. It was placed into the preperitoneal space. The straps were drawn up and each was sutured superiorly and inferiorly with 0 Ethibond suture. The straps were then cut and the hernia defect was closed with 0 Ethibond in [id number] fashion. The umbilical stalk was reapproximated to the anterior abdominal wall with 3-0 Vicryl. The wound was then closed in two layers with 3-0 Vicryl for the deep dermis and 4-0 Monocryl for the skin edges. Steri-Strips were applied. Dressings were applied. The patient tolerated the procedure well, was awakened, and transferred to recovery room in stable condition. [id number]/[facility] #: [id number] [facility] CENTERSherita
== END | disposition home or self-care (01) ==
LOC: OR 07:33
PROVIDERS: ATTEND Surgery
DX: K42.9 Umbilical hernia without obstruction or gangrene (principal); Z72.0 Tobacco use; E66.9 Obesity, unspecified
CPT/HCPCS: A9270-GY; C1781; J0690; J2001; J2250; J2704; J3010; J3490; J8540